=== PATIENT | female | born 1995 | race Caucasian/White ===

== ENCOUNTER 2016-10-17 10:26 | Emergency (ER) | payer MEDICAID, OTHER ==
[~2016-10-17] VITALS: Ht 154.9 cm; Wt 48.0 kg
[2016-10-17 11:10] VITALS: BP 104/63
[2016-10-17] MEDS ORDERED: ONDANSETRON 4MG ODT PO STA (11:28)
[2016-10-17] MEDS ORDERED: MAGNESIUM/ALUMINUM HYDROXIDE/SIMETHICONE 30ML UDC PO STA (11:28)
[2016-10-17 11:53] LABS: CLARITY URINE CLEAR (CLEAR); COLOR URINE YELLOW (YELLOW); GLUCOSE URINE NEGATIVE (NEGATIVE); KETONES URINE TRACE (NEGATIVE); LEUKOCYTE ESTERASE URINE NEGATIVE (NEGATIVE); NITRITE URINE NEGATIVE (NEGATIVE); OCCULT BLOOD URINE NEGATIVE (NEGATIVE); PH URINE 6.5 (4.5-8.0); PROTEIN URINE NEGATIVE (NEGATIVE)
[2016-10-17 12:02] LABS: BASOPHILS % 0.5 % (0.0-2.0); HEMATOCRIT. 35.2 % (36.0-48.0); HEMOGLOBIN. 11.7 g/dL (12.0-16.0); LYMPHOCYTES % 27.7 % (20.0-50.0); MEAN CORPUSCULAR HEMOGLOBIN 28.5 pg (28.0-32.0); MEAN CORPUSCULAR VOLUME 85.8 fL (81.0-99.0); MEAN PLATELET VOLUME 7.7 fl (7.4-10.4); MONOCYTES % 8.4 % (2.0-8.0); NEUTROPHILS % 63.4 % (40.0-76.0); PLATELET 297 x1000/uL (130-400); RED CELL DISTRIBUTION WIDTH 12.2 % (11.6-14.6)
[2016-10-17 12:14] LABS: CARBON DIOXIDE 26 mEq/L (21-32); CHLORIDE 99 mEq/L (98-107)
[2016-10-17 12:39] LABS: HCG SCREEN NEGATIVE
== END 2016-10-17 13:29 | disposition home or self-care (01) ==
LOC: ER 11:34
DX: A08.4 Viral intestinal infection, unspecified (principal); F84.0 Autistic disorder
CPT/HCPCS: 36415; 80053; 81003; 83690; 84703; 85025; 99284; Q0162; Z7610

== ENCOUNTER 2022-07-10 16:59 | Emergency (ER) | payer MEDICAID, OTHER ==
[~2022-07-10] VITALS: Ht 165.1 cm; Wt 77.0 kg
[2022-07-10 20:00] VITALS: BP 125/87
[2022-07-10] MEDS ORDERED: ACETAMINOPHEN 325MG TABLET PO ONE (21:45)
[2022-07-10] MEDS ORDERED: ONDANSETRON 4MG ODT PO ONE (21:45)
[2022-07-10] MEDS ORDERED: ONDA4TAB11 PO (22:03)
[2022-07-10] MEDS ORDERED: TOPUD PO (22:03)
== END 2022-07-10 22:18 | disposition home or self-care (01) ==
LOC: ER 16:59
DX: B34.9 Viral infection, unspecified (principal)
CPT/HCPCS: 99283; Q0162

== ENCOUNTER 2024-02-28 14:36 | Emergency (ER) | payer MEDICAID ==
[~2024-02-28] VITALS: Ht 160 cm; Wt 60.0 kg
[2024-02-28 14:52] VITALS: BP 0/0; PULSE 75; RESP 18; TEMP 98.2; O2SAT 95
[2024-02-28] MEDS ORDERED: CLOT15CR27 TP (17:20)
[2024-02-28] MEDS ORDERED: DIPH35CR TP (17:20)
== END 2024-02-28 17:59 | disposition home or self-care (01) ==
LOC: ER 14:36
DX: R21 Rash and other nonspecific skin eruption (principal); F84.0 Autistic disorder
CPT/HCPCS: 99282